=== PATIENT | female | born 1950 | race Hispanic/Latino ===

== ENCOUNTER → 2019-02-12 | Outpatient (CLI) | payer OTHER | END | disposition home or self-care (01) | LOC: RAH 09:58 | PROVIDERS: ATTEND Family Medicine | DX: Z13.6 Encounter for screening for cardiovascular disorders (principal); K44.9 Diaphragmatic hernia without obstruction or gangrene | CPT/HCPCS: 75571 ==

== ENCOUNTER 2024-06-13 20:04 | Emergency (ER) | payer OTHER ==
[~2024-06-13] VITALS: Ht 157.5 cm; Wt 81.6 kg
[2024-06-13 20:05] VITALS: BP 168/84; PULSE 106; RESP 20; TEMP 98.2
[2024-06-13] MEDS ORDERED: FAMC500T8 PO (20:22)
[2024-06-13] MEDS ORDERED: VALA100031 PO (20:25)
[2024-06-13] MEDS: valaCYCLOvir HCL 500 MG TABLET PO ONE (20:32)
== END 2024-06-13 20:41 | disposition home or self-care (01) ==
LOC: EDH 20:04
DX: B02.9 Zoster without complications (principal); E11.9 Type 2 diabetes mellitus without complications; I10 Essential (primary) hypertension; Z90.710 Acquired absence of both cervix and uterus